=== PATIENT | male | born 1960 | race Caucasian/White ===

== ENCOUNTER → 2018-03-15 | Outpatient (CLI) | payer OTHER ==
[~2018-03-15] MED LIST: GADOBUTROL 10 ML VIAL IVP ONE
== END ==
LOC: FIMAGING 12:37
PROVIDERS: ATTEND Dermatology
DX: Z12.89 Encounter for screening for malignant neoplasm of other sites (principal); R90.82 White matter disease, unspecified; C44.92 Squamous cell carcinoma of skin, unspecified
CPT/HCPCS: 70553; A9585; 82565-PO